=== PATIENT | female | born 1990 ===

== ENCOUNTER 2019-05-22 11:32 | Inpatient (IN) ==
--- OUTSIDE RECORDS SUMMARY | 2019-05-22 11:36 | External Medical Summary | Continuity of Care Document ---
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 Jose Garcia 28 EA Disp Pack Quantity: 1 Refills: 6 Procedures History of Annabel Treatment Of Fracture Of Tibial Shaft With Status: Completed Manipulation History of Pap Smear (+) Low Grade Squamous Intraepithelial Status: Completed Lesion Encounter for contraceptive management Immunizations Immunizations not documented Family History Unknown Family Member Family history of Breast Cancer (V16.3) Status: Active Comments: Family History Social History - Smoking Status Former smoker Plan of Treatment Planned Observations Planned Goals not documented Results No Known Results Results not documented
[2019-05-22] MEDS ORDERED: SODIUM CHLORIDE 0.9% 1000ML 1,000 ML IV ONE ×2 (12:00→13:16)
[2019-05-22] MEDS ORDERED: LORazepam 1 MG/2 ML VIAL IV STA (12:00)
[2019-05-22 12:30] LABS: Basophils # (auto) 0.04 K/uL (0-0.2); Basophils % (auto) 0.8 %; Eosinophils # (auto) 0.01 K/uL (0-0.5); Eosinophils % (auto) 0.2 %; Hematocrit (blood only) 42.1 % (37-47); Hemoglobin 14.9 g/dL (12.0-16.0); Immature Granulocytes # (auto) 0.01 K/uL (0.00-0.02); Immature Granulocytes % (auto) 0.2 %; Lymphocytes # (auto) 1.28 K/uL (1.2-3.4); Lymphocytes % (auto) 25.5 %; Mean Corpuscular Hgb Conc 35.4 g/dL (32-36); Mean Corpuscular Volume 98.8 fL (80-100); Mean Platelet Volume 9.2 fL (7.4-10.4); Monocytes # (auto) 0.33 K/uL (0.11-0.59); Monocytes % (auto) 6.6 %; Neutrophils # (auto) 3.34 K/uL (1.4-6.5); Neutrophils % (auto) 66.7 %; Nucleated RBC # (auto) 0.05 K/uL (0-0); Nucleated RBC % (auto) 0.9 %; Platelet Count 135 K/uL (130-400); RDW Coefficient of Variation 13.8 % (11.5-14.5); RDW Standard Deviation 49.3 fL (36.4-46.3); Red Blood Count 4.26 M/uL (4.2-5.4); White Blood Count 5.01 K/uL (4.8-10.8)
[2019-05-22 12:49] LABS: Potassium 3.6 mmol/L (3.5-5.1)
[2019-05-22 12:50] LABS: Albumin Level 3.8 gm/dl (3.4-5.0); BUN Creatinine Ratio 9.1 (10-20); Bilirubin,Total 0.7 mg/dl (0.2-1); Calcium 8.3 mg/dl (8.5-10.1); Creatinine Clr Calc Pharmacy 111.8 ml/min; Est GFR (African American) 144.9; Globulin 3.7 gm/dl (2.5-4.0); Total Protein 7.5 gm/dl (6.4-8.2)
[2019-05-22 12:54] LABS: Pregnancy Test, Serum Negative (Negative)
[2019-05-22 13:15] LABS: Appearance Urine Clear (Clear); Bilirubin Urine Negative (Negative); Blood Urine Negative (Negative); Color Urine Yellow; Glucose Urine UA Negative (Negative); Ketones Urine Negative (Negative); Leukocyte Esterase Urine Negative (Negative); Nitrite Urine Negative (Negative); Protein Urine Negative (Negative); Specific Gravity Urine 1.007 (1.000-1.030); Urobilinogen Urine Negative (Negative); pH Urine 8.5 (4.5-7.5)
--- NOTE | 2019-05-22 13:15 | Emergency Department Note ---
Entered by Anel Caldwell acting as a scribe for History of Present Illness General Chief complaint: Dehydration Stated complaint: DEHYDRATION,RECENT PANCREATITIS,LOW BLOOD SUGAR Time Seen by Provider: 05/22/19 11:44 Source: patient History of Present Illness Onset (ago): day(s) (several) Location: abdomen Severity: similar to prior episodes Pain Consistency: + other (worsening) Quality: + other (nausea and vomiting ) Exacerbated By: + eating Associated symptoms: + other (negative abdominal pain; negative diarrhea; n egative urinary symptoms); no fever/chills and no shortness of breath The patient is a 29 year old female who presents to the Emergency Room with complaints of worsening nausea and vomiting that began several days prior to arrival. The patient states that she has had similar symptoms over the past month, but states that her symptoms have become worse recently. She states that her symptoms are exacerbated with eating, and states that she vomits every time she eats. The patient reports that she has been able to keep liquids down during this time, but states that today she was unable to keep liquids down. The patient denies shortness of breath, abdominal pain, diarrhea, fever, and urinary symptoms. The patient states that about 4 weeks ago she had abdominal pain, nausea, and vomiting and was diagnosed with pancreatitis. She states that she was previously diagnosed with pancreatitis about 5 years ago which was due to alcohol use, but states that she was told that her most recent episode of pancreatitis was not due to alcohol use. The patient states that she does still drink, but states that she has not been drinking as much as she previously did. She states that she had two alcoholic drinks yesterday, but denies vomiting yesterday. The patient states that there is no chance she may be . The patient states that she has a history of anxiety and depression, but denies any current thoughts of hurting herself or overdoses on medications. The patient denies any symptoms of withdrawal when not drinking, but states that she often shakes from her anxiety so she is unable to determine whether the lack of alcoho l is causing her shaking. The patient denies any recent trauma to her abdomen. Home Medications Home Medications Medication Instructions Recorded Confirmed Type levonorgestrel [Mirena] 1 device INTRAUTERINE DIRECTED 05/22/19 05/22/19 History lorazepam [Ativan] 0.5 mg PO DIRECTED PRN 05/22/19 05/22/19 History losartan 50 mg PO DAILY 05/22/19 05/22/19 History Allergies Allergy/AdvReac Type Severity Reaction Status Date / Time Penicillins AdvReac Rash Unverified 05/22/19 12:32 Past Med/Surg History Medical History Pancreatitis Social History Feels Safe at Home: Yes Smoking Status: Never smoker Hx Alcohol Use: Yes Review of Systems See HPI for pertinent positives & negatives. and A total of 10 systems reviewed and were otherwise negative Physical Exam Vital Signs Vital Signs - 24 hr 05/22/19 11:40 05/22/19 12:24 05/22/19 12:26 Temperature 37.1 C Temperature Source Oral Sepsis Recent Fever Within 48 Hours No Sepsis New/Unexplained Change in Mental Status No Sepsis Action Taken by Nursing No Action Required Pulse Rate 100 H 97 H 91 H Pulse Rate from SpO2 Sensor Respiratory Rate 16 17 17 Respiratory Effort / Characteristics Non-Labored Respiratory Depth Normal Blood Pressure 167/107 H 146/106 H Blood Pressure Mean 127 119 Pulse Oximetry 96 98 96 Oxygen Delivery Method Room Air Room Air 05/22/19 12:30 05/22/19 13:05 05/22/19 13:30 Temperature Temperature Source Sepsis Recent Fever Within 48 Hours Sepsis New/Unexplained Change in Mental Status Sepsis Action Taken by Nursing Pulse Rate 96 H 96 H 92 H Pulse Rate from SpO2 Sensor 97 H 96 H Respiratory Rate 21 18 15 Respiratory Effort / Characteristics Respiratory Depth Blood Pressure 139/103 H 147/111 H 141/98 H Blood Pressure Mean 115 123 112 Pulse Oximetry 97 99 98 Oxygen Delivery Method Room Air Room Air Room Air 05/22/19 14:00 05/22/19 14:28 05/22/19 14:30 Temperature Temperature Source Sepsis Recent Fever Within 48 Hours Sepsis New/Unexplained Change in Mental Status Sepsis Action Taken by Nursing Pulse Rate 100 H 98 H Pulse Rate from SpO2 Sensor 100 H Respiratory Rate 24 18 Respiratory Effort / Characteristics Respiratory Depth Blood Pressure 135/99 135/99 142/101 H Blood Pressure Mean 111 114 Pulse Oximetry 98 97 Oxygen Delivery Method Room Air Room Air 05/22/19 15:19 05/22/19 15:30 Temperature Temperature Source Sepsis Recent Fever Within 48 Hours Sepsis New/Unexplained Change in Mental Status Sepsis Action Taken by Nursing Pulse Rate 99 H 103 H Pulse Rate from SpO2 Sensor 103 H Respiratory Rate 17 13 Respiratory Effort / Characteristics Respiratory Depth Blood Pressure 137/95 Blood Pressure Mean 109 Pulse Oximetry 97 100 Oxygen Delivery Method Room Air Room Air General: Mildly-ill appearing young female in no acute distress. Mildly shaky and anxious. HEENT: Normal cephalic atraumatic. Pupils are equal round and reactive to light. Extraocular movements are intact. Oropharynx is pink with moist mucous membranes. No swelling of the mouth lips or tongue. Neck: Supple with a midline trachea. No meningeal signs or stiffness, no JVD or bruits. No Stridor. Chest: Clear to auscultation bilaterally. No wheezes or rhonchi. No increased work of breathing. Heart: regular rate and rhythm. Abdomen: Soft nontender, nondistended without rebound guarding or rigidity. Extremities: No cyanosis clubbing or edema. No calf tenderness or asymmetry Spine/Back. Non tender to palpation. No CVA tenderness Skin: Good turgor without rashes. Neurologic exam: Cranial nerves two through 12 are intact. Motor and sensation are intact and symmetrical throughout. Course 1147: Past medical records reviewed. The patient was evaluated in room B9. A complete history and physical exam was performed. 1306: The patient is currently giving a urine sample. 1333: I ordered Toradol for the patient's headache. The psychiatric counter caser will talk to the patient. 1404: The patient admitted to the psychiatric counter caser that she has about 6 drinks a day since October and is worried about withdrawal. I will prescribe her an Ativan taper. 1415: Upon reevaluation, the patient is resting comfortably. I discussed findings and results with her. She verbalized agreement of the treatment plan. She was discharged home. Administered Medications Discontinued Medications Sodium Chloride (Nss 1000ml) 1,000 mls @ 999 mls/hr IV .Q1H1M ONE Stop: 05/22/19 13:00 Last Infusion: 05/22/19 13:21 Dose: 0 mls/hr Documented by: [id number] Admin: 05/22/19 12:20 Dose: 999 mls/hr Documented by: [id number] Lorazepam (Ativan) 1 mg in 2 mls @ 2 mls/min IV NOW STA Stop: 05/22/19 12:01 Last Admin: 05/22/19 12:20 Dose: 2 mls/min Documented by: [id number] Sodium Chloride (Nss 1000ml) 1,000 mls @ 999 mls/hr IV .Q1H1M ONE Stop: 05/22/19 14:16 Last Infusion: 05/22/19 14:35 Dose: 0 mls/hr Documented by: [id number] Admin: 05/22/19 13:34 Dose: 999 mls/hr Documented by: [id number] Ketorolac Tromethamine (Toradol) 15 mg IV NOW ONE Stop: 05/22/19 13:34 Last Admin: 05/22/19 13:39 Dose: 15 mg Documented by: [id number] Lorazepam (Ativan) 1 mg PO NOW STA Stop: 05/22/19 14:16 Last Admin: 05/22/19 14:28 Dose: 1 mg Documented by: [id number] Ondansetron HCl (Zofran) 4 mg IV NOW STA Stop: 05/22/19 15:02 Last Admin: 05/22/19 15:06 Dose: 4 mg Documented by: [id number] Ranitidine HCl (Zantac) 150 mg PO NOW ONE Stop: 05/22/19 15:23 Last Admin: 05/22/19 15:32 Dose: 150 mg Documented by: [id number] Medical Decision Making Differential Diagnosis Differential diagnoses include pancreatitis, gastritis, dehydration, electrolyte or metabolic abnormality, alcohol abuse/withdrawal, and others were considered. Medical Records Attestation: I reviewed the patient's medical records. Home Medications Current Medication List: was personally reviewed by me Laboratory Data Attestation: I reviewed the patient's lab results. Result diagrams: 05/22/19 12:10 05/22/19 12:10 Lab Results 05/22/19 05/22/19 05/22/19 Range/Units 12:10 12:10 12:10 WBC 5.01 (4.8-10.8) K/uL RBC 4.26 (4.2-5.4) M/uL Hgb 14.9 (12.0-16.0) g/dL Hct 42.1 (37-47) % MCV 98.8 (80-100) fL MCH 35.0 H (25-34) pg MCHC 35.4 (32-36) g/dL RDW Std Deviation 49.3 H (36.4-46.3) fL RDW Coeff of [place] 13.8 (11.5-14.5) % Plt Count 135 (130-400) K/uL MPV 9.2 (7.4-10.4) fL Immature Gran % (Auto) 0.2 % Neut % (Auto) 66.7 % Lymph % (Auto) 25.5 % [place] % (Auto) 6.6 % Eos % (Auto) 0.2 % Baso % (Auto) 0.8 % Immature Gran # (Auto) 0.01 (0.00-0.02) K/uL Neut # (Auto) 3.34 (1.4-6.5) K/uL Lymph # (Auto) 1.28 (1.2-3.4) K/uL [place] # (Auto) 0.33 (0.11-0.59) K/uL Eos # (Auto) 0.01 (0-0.5) K/uL Baso # (Auto) 0.04 (0-0.2) K/uL Absolute Nucleated RBC 0.05 H (0-0) K/uL Nucleated RBC % (auto) 0.9 % Sodium 137 (136-145) mmol/L Potassium 3.6 (3.5-5.1) mmol/L Chloride 98 (98-107) mmol/L Carbon Dioxide 27 (21-32) mmol/L Anion Gap 12.0 H (3-11) BUN 5 L (7-18) mg/dl Creatinine 0.55 L (0.6-1.2) mg/dl Est Cr Clr Drug Dosing 111.8 ml/min Est GFR ( Amer) 144.9 Est GFR (Non-Af Amer) 125.0 BUN/Creatinine Ratio 9.1 L (10-20) Glucose 145 H (70-99) mg/dl Calcium 8.3 L (8.5-10.1) mg/dl Magnesium 2.0 (1.8-2.4) mg/dl Total Bilirubin 0.7 (0.2-1) mg/dl AST 338 H (15-37) U/L ALT 219 H (12-78) U/L Alkaline Phosphatase 104 (45-117) U/L Total Creatine Kinase (26-192) U/L CK-MB (CK-2) (0.5-3.6) ng/ml CK/CKMB % Calc Total Protein 7.5 (6.4-8.2) gm/dl Albumin 3.8 (3.4-5.0) gm/dl Globulin 3.7 (2.5-4.0) gm/dl Albumin/Globulin Ratio 1.0 (0.9-2) Amylase (25-115) U/L Lipase 110 (73-393) U/L HCG, Qual (Negative) Urine Color Urine Appearance (Clear) Urine pH (4.5-7.5) Ur Specific [place] (1.000-1.030) Urine Protein (Negative) Urine Glucose (UA) (Negative) Urine Ketones (Negative) Urine Blood (Negative) Urine Nitrite (Negative) Urine Bilirubin (Negative) Urine Urobilinogen (Negative) Ur Leukocyte Esterase (Negative) Ethyl Alcohol mg/dL 31.0 H (0-3) mg/dl 05/22/19 05/22/19 05/22/19 Range/Units 12:10 12:10 12:10 WBC (4.8-10.8) K/uL RBC (4.2-5.4) M/uL Hgb (12.0-16.0) g/dL Hct (37-47) % MCV (80-100) fL MCH (25-34) pg MCHC (32-36) g/dL RDW Std Deviation (36.4-46.3) fL RDW Coeff of [place] (11.5-14.5) % Plt Count (130-400) K/uL MPV (7.4-10.4) fL Immature Gran % (Auto) % Neut % (Auto) % Lymph % (Auto) % [place] % (Auto) % Eos % (Auto) % Baso % (Auto) % Immature Gran # (Auto) (0.00-0.02) K/uL Neut # (Auto) (1.4-6.5) K/uL Lymph # (Auto) (1.2-3.4) K/uL [place] # (Auto) (0.11-0.59) K/uL Eos # (Auto) (0-0.5) K/uL Baso # (Auto) (0-0.2) K/uL Absolute Nucleated RBC (0-0) K/uL Nucleated RBC % (auto) % Sodium (136-145) mmol/L Potassium (3.5-5.1) mmol/L Chloride (98-107) mmol/L Carbon Dioxide (21-32) mmol/L Anion Gap (3-11) BUN (7-18) mg/dl Creatinine (0.6-1.2) mg/dl Est Cr Clr Drug Dosing ml/min Est GFR ( Amer) Est GFR (Non-Af Amer) BUN/Creatinine Ratio (10-20) Glucose (70-99) mg/dl Calcium (8.5-10.1) mg/dl Magnesium Cancelled (1.8-2.4) mg/dl Total Bilirubin (0.2-1) mg/dl AST (15-37) U/L ALT (12-78) U/L Alkaline Phosphatase (45-117) U/L Total Creatine Kinase (26-192) U/L CK-MB (CK-2) (0.5-3.6) ng/ml CK/CKMB % Calc Total Protein (6.4-8.2) gm/dl Albumin (3.4-5.0) gm/dl Globulin (2.5-4.0) gm/dl Albumin/Globulin Ratio (0.9-2) Amylase 38 (25-115) U/L Lipase (73-393) U/L HCG, Qual Negative (Negative) Urine Color Urine Appearance (Clear) Urine pH (4.5-7.5) Ur Specific [place] (1.000-1.030) Urine Protein (Negative) Urine Glucose (UA) (Negative) Urine Ketones (Negative) Urine Blood (Negative) Urine Nitrite (Negative) Urine Bilirubin (Negative) Urine Urobilinogen (Negative) Ur Leukocyte Esterase (Negative) Ethyl Alcohol mg/dL (0-3) mg/dl 05/22/19 05/22/19 Range/Units 12:10 13:04 WBC (4.8-10.8) K/uL RBC (4.2-5.4) M/uL Hgb (12.0-16.0) g/dL Hct (37-47) % MCV (80-100) fL MCH (25-34) pg MCHC (32-36) g/dL RDW Std Deviation (36.4-46.3) fL RDW Coeff of [place] (11.5-14.5) % Plt Count (130-400) K/uL MPV (7.4-10.4) fL Immature Gran % (Auto) % Neut % (Auto) % Lymph % (Auto) % [place] % (Auto) % Eos % (Auto) % Baso % (Auto) % Immature Gran # (Auto) (0.00-0.02) K/uL Neut # (Auto) (1.4-6.5) K/uL Lymph # (Auto) (1.2-3.4) K/uL [place] # (Auto) (0.11-0.59) K/uL Eos # (Auto) (0-0.5) K/uL Baso # (Auto) (0-0.2) K/uL Absolute Nucleated RBC (0-0) K/uL Nucleated RBC % (auto) % Sodium (136-145) mmol/L Potassium (3.5-5.1) mmol/L Chloride (98-107) mmol/L Carbon Dioxide (21-32) mmol/L Anion Gap (3-11) BUN (7-18) mg/dl Creatinine (0.6-1.2) mg/dl Est Cr Clr Drug Dosing ml/min Est GFR ( Amer) Est GFR (Non-Af Amer) BUN/Creatinine Ratio (10-20) Glucose (70-99) mg/dl Calcium (8.5-10.1) mg/dl Magnesium (1.8-2.4) mg/dl Total Bilirubin (0.2-1) mg/dl AST (15-37) U/L ALT (12-78) U/L Alkaline Phosphatase (45-117) U/L Total Creatine Kinase 103 (26-192) U/L CK-MB (CK-2) < 1.0 (0.5-3.6) ng/ml CK/CKMB % Calc TNP Total Protein (6.4-8.2) gm/dl Albumin (3.4-5.0) gm/dl Globulin (2.5-4.0) gm/dl Albumin/Globulin Ratio (0.9-2) Amylase (25-115) U/L Lipase (73-393) U/L HCG, Qual (Negative) Urine Color Yellow Urine Appearance Clear (Clear) Urine pH 8.5 H (4.5-7.5) Ur Specific [place] 1.007 (1.000-1.030) Urine Protein Negative (Negative) Urine Glucose (UA) Negative (Negative) Urine Ketones Negative (Negative) Urine Blood Negative (Negative) Urine Nitrite Negative (Negative) Urine Bilirubin Negative (Negative) Urine Urobilinogen Negative (Negative) Ur Leukocyte Esterase Negative (Negative) Ethyl Alcohol mg/dL (0-3) mg/dl ECG Data Attestation: I personally reviewed and interpreted this ECG as follows: Indication: nausea Rate (beats per minute): 88 Rhythm: normal sinus Findings: no PAC, no PVC, no acute ischemic change and no ectopy Blood Pressure Blood Pressure Findings: Elevated blood pressure Blood Pressure Disposition: elevated BP felt to be situational MDM Narrative This patient comes in as described above. She is complained of feeling nauseated and having trouble eating. She was hospitalized for pancreatitis about 4 weeks ago. She does drink alcohol. She was out in the sun a lot yesterday. No trauma. No abdominal pain. IV access established and blood work was obtained she was hydrated 1 L IV normal saline bolus she did receive a second normal saline bolus while she was in the ER. She has no white count or fever to suggest infection her abdomen is benign. She was given Ativan in itially 1 mg IV which would help with anxiety nausea and any potential withdrawal from alcohol. Her alcohol level was 30. Her lipase and amylase are not elevated. She has mildly elevated LFTs which I suspect are from drinking heavily. She has no evidence of rhabdomyolysis. She seemed to do well with the Ativan but then started feeling like she needed more she was given p.o. Ativan 1 mg. When she tried to eat a banana she felt sick and threw up and is very concerned about going home I gave her Zofran 4 mg IV and she is had additional IV normal saline bolus. Also Zantac 150 mg p.o. I had our psychiatric counter caser talk to her about rehab she does not want to go inpatient at this point and she is from out of town rather get services here. She drinks 6 drinks a day and I think a lot of her symptoms are either related alcohol related gastritis or withdrawal. She probably has anxiety on top of this. She does not feel she can go home at this point. I have consult the [facility] hospitalist to see her for possible admission with hydration, antiemetics, and benzodiazepines and GI work-up. Impression & Plan Emesis, Nausea, Alcohol abuse, Anxiety, Dehydration Discharge Plan Visit Data Chief Complaint: Dehydration Stated Complaint: DEHYDRATION,RECENT PANCREATITIS,LOW BLOOD SUGAR ED Provider: Chriss Loya Discharge Problem: Emesis, Nausea, Alcohol abuse, Anxiety, Dehydration Patient Disposition: Home - Self-Care Discharge Instructions Activity Restrictions/Additional Instructions: Rest. Follow-up with your doctor and counselor for further evaluation for your anxiety and alcohol use and abdominal pain Minimize your alcohol use. May use Maalox. Also may use [id number] Zantac or Pepcid Return if: Worsening symptoms, not tolerating fluids, fever or chills, any new problems For alcohol withdrawal prevention use Ativan (Lorazepam) taper as directed 1 mg lorazepam every 6 hours x1 day then 1 mg lorazepam every 8 hours x1 day then 1 mg lorazepam every 12 hours x1 day then 1 mg lorazepam once a day for 1 day Ativan/lorazepam may make you drowsy and do not take before drinking, driving, working. This replaces the Ativan/Lorazepam that you normally take and do not take both If you start drinking do not take the Ativan/lorazepam, stop taking it Follow-up with your doctor tomorrow for recheck Interventions: ED Discharge Assessment Last Done: 05/22/19 14:28 Forms Stand Alone Forms: My [facility], Important Visit Information Prescriptions Prescriptions: No Action losartan 50 mg Tablet 50 mg PO DAILY RF: 0 Mirena 20 mcg/24 hours (5 yrs) 52 mg Intrauterine Device 1 device INTRAUTERINE DIRECTED RF: 0 lorazepam [Ativan] 0.5 mg Tablet 0.5 mg PO DIRECTED PRN (Reason: Anxiety) RF: 0 Referrals Referrals: ERICA BOSS [Other] The scribe's documentation has been prepared under my direction and personally reviewed by me in its entirety. I confirm that the note above accurately reflects all work, treatment, procedures, and medical decision making performed by me.
[2019-05-22] MEDS ORDERED: KETOROLAC TROMETHAMINE 15 MG/ML VIAL IV ONE (13:33)
[2019-05-22 13:52] LABS: Creatine Kinase 103 U/L (26-192); Creatine Kinase MB < 1.0 ng/ml (0.5-3.6)
[2019-05-22] MEDS ORDERED: LORazepam 1 MG TAB PO STA (14:15)
[2019-05-22] MEDS ORDERED: ONDANSETRON INJ 2 MG/ML 2 ML VIAL IV STA (15:01)
[2019-05-22] MEDS ORDERED: RANITIDINE HCL SYRUP 150 MG/10 ML UDC PO ONE (15:22)
--- NOTE | 2019-05-22 15:56 | History & Physical Report ---
Date of Service May 22, 2019 Assessment & Plan (1) Nausea and vomiting: Patient clearly needs to stop drinking. Recent episode of acute pancreatitis is adding to the situation as she is likely still healing from this, and still drinking as of yesterday. She has a history of bulimia and has some psychosocial issues including anxiety and depression. There may be some issue with the process of swallowing food as food intolerance appears to be more closely linked to that as opposed to persistent nausea. She also appears to have alcohol withdrawal as she is mildly tachycardic, anxious and hypertensive. She denies any danger signs such as odynophagia severe weight loss, globus sensa tion, hematemesis. I do not think an endoscopy is needed however, the patient would feel more comfortable being seen by a blind cleaner to discuss these issues. Additionally I feel speech pathology will help us breakdown the swallowing process to localize the problem. Continue with antiemetics, IV fluids and other supportive care measures. Clear liquid diet as tolerated. (2) Alcohol abuse: Heavy alcohol abuse, encouraged to quit. (3) Alcohol withdrawal: Slightly tachycardic with things diet he present and hypertension. This is consistent with possible alcohol withdrawal. Ativan 1 mg IV was given in the ER, however, she is still anxious. Will give Ativan 2 mg IV now and put her on a withdrawal protocol. However, typically this underestimates the needs of someone withdrawing so will add additional Ativan as needed for anxiety or agitation. (4) Transaminitis: Likely secondary to alcohol intake, however, will also get right upper quadrant ultrasound in a.m. Trend liver panel in a.m. (5) Hypertension: Continue losartan daily per home regimen. Situational hypertension in setting of possible alcohol withdrawal. Continue treating this with Ativan and supportive care measures. (6) DVT prophylaxis: SCDs Full code Disposition-home once tolerating p.o. Kamila Deluna DO [facility] Hospitalist History of Present Illness Chief Complaint: Nausea and vomiting x2 days Primary Care Provider: ERICA BOSS 29-year-old female who is a heavy alcohol abuser with a recent episode of acute pancreatitis 1 month ago for which she was hospitalized presents with nausea and intractable vomiting for the past 2 days. She appears to have an issue with swallowing food and initiating the swallow. She reports poor appetite for at least 2 months. She reports weight loss of 8 pounds in the last month but was also hospitalized for acute pancreatitis. She reports when she was discharged from prior hospitalization she was eating well but only for a brief time. She denies any changes in her stools. She denies any hematochezia or hematemesis. She denies any odynophagia. She denies any globus sensation. She reports that when the food hits her stomach, she can get too excited and vomited up. She reports some heartburn from the recent ranitidine drink she had in the ER. She otherwise denies any fevers, chills, chest pain, shortness of breath, abdominal pain, back pain. She denies using any other street drugs including no marijuana. She is actually considered starting medical marijuana because of her persistent nausea. She has had issues with drinking and quit up until last holiday season, and has been drinking consistently for the last 6 months. Her last drink was yesterday and her alcohol level is 30 today. On exam she is anxious and tachycardic in the low 100s. She reports feeling anxious. She does have a history of anxiety and depression and is used sertraline in the past with negative effects. She is currently taking clonazepam 0.5mg p.o. every morning. She is seeing a psychologist. She is not and has an IUD in place it was not menstruating at this time. Review of systems is otherwise negative. Allergies Allergy/AdvReac Type Severity Reaction Status Date / Time Penicillins AdvReac Rash Unverified 05/22/19 12:32 Home Medications Home Medications Medication Instructions Recorded Confirmed Type levonorgestrel [Mirena] 1 device INTRAUTERINE DIRECTED 05/22/19 05/22/19 History lorazepam [Ativan] 0.5 mg PO DIRECTED PRN 05/22/19 05/22/19 History losartan 50 mg PO DAILY 05/22/19 05/22/19 History Past Med/Surg History Medical History Alcohol abuse Anxiety Hypertension Pancreatitis Surgical History No pertinent past surgical history Family History Mother Ulcerative colitis Father Colorectal cancer, Onset Age: 60 Social History Preferred Language: Uzbek Communication Ability: Effective Assistant Food Service Director Required: No Beliefs That Will Affect Care: None Current Living Situation: Spouse Other Information That Helps Us Care for You: No Feels Safe at Home: Yes Safety Concerns: Feels Safe At This Time Smoking Status: Never smoker Tobacco Type: cigarettes ; Do You Dip or Chew Tobacco: No ; Smoking End Date: 2009 ; Second Hand Exposure: No ; Tobacco Cessation Education Requested by Patient: No Hx Alcohol Use: Yes (6 beers daily, also drinks wine and hard liquor.) Alcohol type: beer, wine and hard liquor Hx Substance Use: No Review of Systems Review of Systems: All systems reviewed & are unremarkable except as noted in HPI & below Physical Exam Physical Exam: CONSTITUTIONAL: WNWD, vitals as above, generally well- appearing but anxious EYES: EOMI bilaterally, PERRL, normal conjunctivae, no scleral icterus ENT: MMM RESPIRATORY: clear to auscultation bilaterally, no crackles, rales or wheezes, normal respiratory effort CARDIOVASCULAR: tachy rate and regular rhythm, S1 and 2 heard without murmurs, gallops or rubs, no JVD, no peripheral edema GASTROINTESTINAL: normal bowel sounds, soft, nontender, nondistended MUSCULOSKELETAL: strength 5/5 throughout, head is normocephalic and atraumatic SKIN: warm and dry NEUROLOGIC: CN 2-12 grossly intact, no sensory deficit, normal cognition, normal speech, no tremor, no gross focal deficits. PSYCHIATRIC: alert cooperative and oriented to person, place and time. Results & Data Vital Signs (Past 12 Hours) Vital Signs Temp Pulse Resp BP Pulse Ox 05/22/19 15:30 103 H 13 137/95 100 05/22/19 15:19 99 H 17 97 05/22/19 14:30 142/101 H 05/22/19 14:28 98 H 18 135/99 97 05/22/19 14:00 100 H 24 135/99 98 05/22/19 13:30 92 H 15 141/98 H 98 05/22/19 13:05 96 H 18 147/111 H 99 05/22/19 12:30 96 H 21 139/103 H 97 05/22/19 12:26 91 H 17 96 05/22/19 12:24 97 H 17 146/106 H 98 05/22/19 11:40 37.1 C 100 H 16 167/107 H 96 Laboratory Results Short CBC 05/22/19 Range/Units 12:10 WBC 5.01 (4.8-10.8) K/uL Hgb 14.9 (12.0-16.0) g/dL Hct 42.1 (37-47) % Plt Count 135 (130-400) K/uL BMP 05/22/19 12:10 Sodium 137 Potassium 3.6 Chloride 98 Carbon Dioxide 27 BUN 5 L Creatinine 0.55 L Glucose 145 H Calcium 8.3 L Cardiac Enzymes 05/22/19 Range/Units 12:10 Total Creatine Kinase 103 (26-192) U/L CK-MB (CK-2) < 1.0 (0.5-3.6) ng/ml Liver Function 05/22/19 Range/Units 12:10 Total Bilirubin 0.7 (0.2-1) mg/dl AST 338 H (15-37) U/L ALT 219 H (12-78) U/L Alkaline Phosphatase 104 (45-117) U/L Albumin 3.8 (3.4-5.0) gm/dl Urine 05/22/19 Range/Units 13:04 Urine Color Yellow Urine Appearance Clear (Clear) Urine pH 8.5 H (4.5-7.5) Ur Specific [place] 1.007 (1.000-1.030) Urine Protein Negative (Negative) Urine Glucose (UA) Negative (Negative) Code Status & VTE Plan Code Status Full VTE Prophylaxis Plan VTE Prophylaxis will be ordered: Yes Critical Care Time Critical Care Time: No
[2019-05-22] MEDS ORDERED: LORazepam 2 MG/4 ML VIAL IV STA (16:42)
[2019-05-22 16:50] LABS: Amphetamines+Metham, Urine Neg (Neg); Barbiturates, Urine Neg (Neg); Benzodiazepine, Urine Neg (Neg); Cocaine, Urine Neg (Neg); MDMA (Ecstacy), Urine Neg (Neg); Methadone, Urine Neg (Neg); Opiate, Urine Neg (Neg); Phencyclidine, Urine Neg (Neg)
[2019-05-22] MEDS ORDERED: NON-FORMULARY MEDICATION (Levonorgestrel [Mirena] 1 EA) IU SCH (17:15)
[2019-05-22] MEDS ORDERED: LORazepam 1 MG/2 ML VIAL IV PRN (17:15)
--- NOTE | 2019-05-22 17:43 | XRay Report ---
CHEST AND ABDOMEN 2 VIEWS HISTORY: intractable nausea/vomiting COMPARISON: None. FINDINGS: The lungs are clear. The cardiomediastinal silhouette is within normal limits. There is no pneumoperitoneum or pneumatosis. The bowel gas pattern is unremarkable. No evidence for b owel obstruction. No pathologic calcifications. An intrauterine device is seen within the mid pelvis. IMPRESSION: No acute cardiopulmonary process. No evidence for bowel obstruction. Electronically signed by: Kris Robles M.D. 05/22/2019 5:42 PM
[2019-05-22] MEDS ORDERED: MULTI-VITAMIN INFUSION 10 ML, THIAMINE HCL 100 MG, FOLIC ACID 1 MG in SODIUM CHLORIDE 0... IV SCH (18:00)
[2019-05-22] MEDS: THIAMINE HCL 100 MG in SYRINGE 9 ML IV SCH (18:07)
[2019-05-22] MEDS: ACETAMINOPHEN 325 MG TAB PO PRN (22:23)
[2019-05-22] MEDS: ONDANSETRON INJ 2 MG/ML 2 ML VIAL IV PRN (22:32)
[2019-05-22] MEDS: SODIUM CHLORIDE 0.9% 1000ML 1,000 ML IV SCH (23:42)
[2019-05-23] MEDS: LORazepam 0.5 MG/1 ML VIAL IV PRN ×3 (00:35→17:37)
[2019-05-23 06:16] LABS: Hematocrit (blood only) 39.6 % (37-47); Hemoglobin 13.7 g/dL (12.0-16.0); Mean Corpuscular Hgb Conc 34.6 g/dL (32-36); Mean Platelet Volume 9.7 fL (7.4-10.4); Platelet Count 109 K/uL (130-400); RDW Coefficient of Variation 13.9 % (11.5-14.5); RDW Standard Deviation 50.8 fL (36.4-46.3); Red Blood Count 3.92 M/uL (4.2-5.4); White Blood Count 6.81 K/uL (4.8-10.8)
[2019-05-23] MEDS: ONDANSETRON INJ 2 MG/ML 2 ML VIAL IV PRN ×2 (06:18→17:37)
[2019-05-23 06:52] LABS: Albumin Level 3.2 gm/dl (3.4-5.0); BUN Creatinine Ratio 3.9 (10-20); Bilirubin Direct 0.3 mg/dl (0-0.2); Calcium 7.7 mg/dl (8.5-10.1); Creatinine Clr Calc Pharmacy 107.9 ml/min; Est GFR (African American) 143.2; Est GFR (Non-African American) 123.5; Magnesium 1.6 mg/dl (1.8-2.4); Potassium 3.1 mmol/L (3.5-5.1)
[2019-05-23 06:58] LABS: Bilirubin,Total 1.2 mg/dl (0.2-1); Total Protein 6.4 gm/dl (6.4-8.2)
--- NOTE | 2019-05-23 07:14 | Ultrasound Report ---
ULTRASOUND RIGHT UPPER QUADRANT ABDOMEN CLINICAL HISTORY: Elevated hepatic transaminases. Nausea and vomiting. COMPARISON STUDY: Abdominal radiographs dated 05/22/2019. TECHNIQUE: Real-time, grayscale, and color flow sonography of the right upper quadrant of the abdomen was performed. Images are reviewed in the transverse and longitudinal planes. FINDINGS: Liver: The liver is enlarged, measuring over 18 cm in length. The liver demonstrates heterogeneously increased echotexture consistent with hepatic steatosis. Note that this degrades acoustic penetration of the liver. There is no intrahepatic biliary ductal dilatation. The main portal vein is patent. Gallbladder: The gallbladder is normal in appearance. No gallstones are identified. There is no gallb ladder wall thickening or pericholecystic fluid. A sonographic Crow's sign is reportedly absent. Th e common bile duct measures up to 0.5 cm in diameter. Pancreas: Visualized portions of the pancreatic head and body are normal in appearance. The splenic v ein is patent. Right kidney: Survey images of the right kidney demonstrate normal size and echotexture. There is no hydronephrosis. Ascites: None. IMPRESSION: 1. No acute sonographic abnormality is identified in the right upper quadrant. No gallstones are seen . 2. Hepatomegaly and hepatic steatosis. Electronically signed by: Chaitanya Orozco M.D. 05/23/2019 7:13 AM
[2019-05-23] MEDS: LOSARTAN POTASSIUM 50 MG TAB PO SCH (09:04)
[2019-05-23] MEDS: POTASSIUM CHLORIDE 20 MEQ TABCR PO STA ×2 (09:05→09:31)
[2019-05-23] MEDS: MAGNESIUM SULFATE / D5W 1 GM/100 ML BAG IV SCH ×2 (09:06→10:39)
[2019-05-23] MEDS: POTASSIUM CHLORIDE / WTR 10 MEQ/100 ML PLCT IV SCH ×4 (11:36→16:03)
[2019-05-23] MEDS: SODIUM CHLORIDE 0.9% 1000ML 1,000 ML IV SCH (11:36)
--- NOTE | 2019-05-23 11:55 | Gastrointestinal Consultation ---
Date of Consultation May 23, 2019 Assessment & Plan (1) Alcohol abuse: (2) Transaminitis: (3) Nausea and vomiting: Pt is a 29 y/o female seen for n/v. Hx of ETOH abuse and pancreatitis a month ago. Labs this time showed elevated LFTs, normal Lipase. RUQ u/s w signs fo hepatic steatosis but no gallstones. - Pepcid 20mg IV BID - Advance diet as tolerated - Discussed w her about obtaining EGD/EUS to r/o esophagitis, gastritis, other etiologies of pancreatitis such as biliary stones not seen by u/s, pancreatitic cysts etc. Also also possibly obtaining swallow study to r/o esophageal spasms, motility. She resides in [place]. May be more reasonable for her to obtain these tests in outpt setting at her hometown. She will consider. - Trend LFTs while admitted, if trending up, would obtain MRCP vs serologies to r/o AIH, hepatitis, and other causes of liver disease. - Strict ETOH cessation advised. Attg add: I interviewed and examined pt, reviewed chart and labs. Pt with h/o alcoholism, pancreatitis, now with resolving n/v, transaminitis. At present, she feels well, without pain, taye liquids without diff, denies nausea. Suspect alcoholic gastritis. Offered pt EGD + EUS, but pt prefers to f/u with local GI. Please consult field nurse case manager here to provide local resources for alcohol rehab. Will sign off, call with questions. History of Present Illness Reason for Consultation: Nausea, vomiting Requesting Physician: Dr. Jefry Dejesus Attending Physician: Dr. Zuleika Louis History of Present Illness Pt is a 29 y/o female w PMHx of ETOH abuse (5-6 mixed drinks a day), pancreatitis admitted at [place] 1 month ago currently admitted for n/v. She was passing through town for a race, but had been having poor appetite, increased n/v and was taken to hospital. She denies any trouble swallowing or choking on foods. Said just felt not much appetite for weeks and anytime she brushes teeth or swallow even bland foods such as bananas, jello, she would "gag". At home staying on mostly smoothies. She denies abd pain, or changes in bowel habits. Though mentioned that her stools are bit looser these days. Denies any blood in stools. Upon evaluation, labs showed no signs of leukocytosis, H/H normal. She has some electrolytes derrangement - low K, Ca, Mg. ETOH level 31, rest of urine toxicology negative. LFTs elevated: Tbili 1.6, AST 245, ALT 160, AP 81. RUQ u/s unremarkable except some hepatic steatosis. No gallstones noted. CXR u nremarkable. Hcg negative. Lipase 110. Allergies Allergy/AdvReac Type Severity Reaction Status Date / Time Penicillins AdvReac Rash Unverified 05/22/19 12:32 Home Medications Home Medications Medication Instructions Recorded Confirmed Type levonorgestrel [Mirena] 1 device INTRAUTERINE DIRECTED 05/22/19 05/22/19 History lorazepam [Ativan] 0.5 mg PO DIRECTED PRN 05/22/19 05/22/19 History losartan 50 mg PO DAILY 05/22/19 05/22/19 History Patient History Medical History Alcohol abuse Anxiety Hypertension Pancreatitis Surgical History No pertinent past surgical history Family History Mother Ulcerative colitis Father Colorectal cancer, Onset Age: 60 Social History Preferred Language: Niuean Communication Ability: Effective Secretary Of State Required: No Beliefs That Will Affect Care: None Current Living Situation: Spouse Other Information That Helps Us Care for You: No Feels Safe at Home: Yes Safety Concerns: Feels Safe At This Time Smoking Status: Never smoker Tobacco Type: cigarettes ; Do You Dip or Chew Tobacco: No ; Smoking End Date: 2009 ; Second Hand Exposure: No ; Tobacco Cessation Education Requested by Patient: No Hx Alcohol Use: Yes (6 beers daily, also drinks wine and hard liquor.) Alcohol type: beer, wine and hard liquor Hx Substance Use: No Review of Systems Review of Systems: All systems reviewed & are unremarkable except as noted in HPI & below Physical Exam Constitutional: WD/WN, vitals as above well groomed, cooperative and comfo rtable Eyes: PERRL, conjunctivae normal, anicteric sclerae ENMT: external ear and nose normal, oropharynx normal Respiratory: normal respiratory effort, lungs clear to auscultation Cardiovascular: RRR, no murmur, no edema Gastrointestinal (Abdomen): normal bowel sounds, soft, nontender, no hepatosplenomegaly Skin: no rashes, warm and dry no jaundice Neurologic: Motor/Sensory: no asterixis Psychiatric: A+Ox3, euthymic affect Lymphatic: no lymphedema Results & Data Vital Signs (Past 12 Hours) Vital Signs Temp Pulse Resp BP Pulse Ox 05/23/19 07:07 36.9 C 66 16 139/93 93
--- NOTE | 2019-05-23 14:18 | Hospitalist Progress Note ---
Date of Service May 23, 2019 Assessment & Plan (1) Nausea and vomiting: Possible related to alcohol abuse KUB showed No acute cardiopulmonary process. No evidence for bowel obstruction. continue IVF Tolerated clear liquid diet GI on board Recommended to advance diet as tolerated Will need outpatient work up (2) Alcohol abuse: Alcohol level 30 Counseling on alcohol cessation Will monitor for alcohol withdrawal On ativan prn for alcohol withdrawal symptoms Will monitor for sign of DT Continue thiamine (3) Alcohol withdrawal: Slightly tachycardic with things diet he present and hypertension. This is consistent with possible alcohol withdrawal. Ativan 1 mg IV was given in the ER, however, she is still anxious. Will give Ativan 2 mg IV now and put her on a withdrawal protocol. However, typically this underestimates the needs of someone withdrawing so will add additional Ativan as needed for anxiety or agitation. (4) Transaminitis: Mostly secondary to alcohol abuse AST on admission 338 that trending to 245 ALT on admission 219 that trending down to 160 Liver u/s showed no acute sonographic abnormality is identified in the right upper quadrant. No gallstones are seen. Monitor Liver Enzymes Avoid hepatotoxic agents (5) Hypertension: BP stable Continue losartan daily per home regimen. Electrolytes imbalance Related to vomiting and poor oral intake Mg 1.6 and K 3.1 Mg and K replaced Monitor Electrolytes (6) DVT prophylaxis: SCDs CODE STATUS Full code Disposition Continue monitor closely Subjective Pt was seen and examined Lying in bed with no distress with mother at bedside Pt said that she has not had any vomiting today She said that she feels hungry and would like to advance her diet She said that she was not able to swallow the potassium tab Denies any chest pain, palpitation, dizziness and SOB Physical Exam Physical Exam: General- No acute distress Head- atraumatic Eyes- PERRL, EOMI, ENT- oropharynx clear Neck- supple, no JVD Lungs- clear to auscultation Heart- regular rhythm; no murmur Abdomen- normal bowel sounds, soft, nontender Extremities- no calf tenderness Neuro- alert, oriented x 3; PERRL, EOMI; no facial palsy; no dysarthria Skin- warm & dry Results & Data Vital Signs (Past 12 Hours) Vital Signs Temp Pulse Resp BP Pulse Ox 05/23/19 07:07 36.9 C 66 16 139/93 93
[2019-05-23] MEDS ORDERED: POTASSIUM CHLORIDE PWD 20 MEQ PACK PO ONE (16:00)
[2019-05-23] MEDS: ACETAMINOPHEN 325 MG TAB PO PRN (17:36)
[2019-05-23] MEDS: THIAMINE HCL 100 MG in SYRINGE 9 ML IV SCH (17:38)
[2019-05-23] MEDS: FAMOTIDINE 20 MG in SYRINGE 3 ML IV SCH (22:06)
[2019-05-24] MEDS: ONDANSETRON INJ 2 MG/ML 2 ML VIAL IV PRN ×2 (03:05→09:09)
[2019-05-24] MEDS: LORazepam 0.5 MG/1 ML VIAL IV PRN ×2 (03:10→11:32)
[2019-05-24 08:58] LABS: Albumin Level 3.6 gm/dl (3.4-5.0); BUN Creatinine Ratio 3.3 (10-20); Creatinine Clr Calc Pharmacy 106.1 ml/min; Est GFR (African American) 142.4; Est GFR (Non-African American) 122.8; Potassium 3.9 mmol/L (3.5-5.1)
[2019-05-24 09:03] LABS: Bilirubin,Total 1.1 mg/dl (0.2-1); Globulin 3.7 gm/dl (2.5-4.0); Total Protein 7.3 gm/dl (6.4-8.2)
[2019-05-24] MEDS: LOSARTAN POTASSIUM 50 MG TAB PO SCH (09:08)
[2019-05-24] MEDS: FAMOTIDINE 20 MG in SYRINGE 3 ML IV SCH (09:08)
--- NOTE | 2019-05-24 10:40 | Hospitalist Progress Note ---
Date of Service May 24, 2019 Assessment & Plan (1) Nausea and vomiting: Possible related to alcohol abuse KUB showed No acute cardiopulmonary process. No evidence for bowel obstruction. Diet advanced and tolerated GI on board Recommended to advance diet as tolerated Resolved (2) Alcohol abuse: Alcohol level 30 Counseling on alcohol cessation Will monitor for alcohol withdrawal On ativan prn for alcohol withdrawal symptoms Will monitor for sign of DT Continue thiamine (3) Transaminitis: Mostly secondary to alcohol abuse AST on admission 338 that trending to 245--> 235 ALT on admission 219 that trending down to 160, then increased to 180 Liver u/s showed no acute sonographic abnormality is identified in the right upper quadrant. No gallstones are seen. Monitor Liver Enzymes Avoid hepatotoxic agents Case discussed with GI and recommended outpatient follow up Monitor CMP (4) Hypertension: BP stable Continue losartan daily per home regimen. Electrolytes imbalance Related to vomiting and poor oral intake Electrolytes stable Monitor Electrolytes (5) DVT prophylaxis: SCDs CODE STATUS Full code Disposition Discharge home tomorrow Subjective Pt was seen and examined Lying in bed with no distress Pt said that she feels much better She said that she tolerated Physical Exam Physical Exam: General- No acute distress Head- atraumatic Eyes- PERRL, EOMI, ENT- oropharynx clear Neck- supple, no JVD Lungs- clear to auscultation Heart- regular rhythm; no murmur Abdomen- normal bowel sounds, soft, nontender Extremities- no calf tenderness Neuro- alert, oriented x 3; PERRL, EOMI; no facial palsy; no dysarthria Skin- warm & dry Results & Data Vital Signs (Past 12 Hours) Vital Signs Temp Pulse Resp BP BP Pulse Ox 05/24/19 07:35 37.2 C 76 16 142/99 H 98 05/23/19 23:27 36.9 C 77 16 135/96 99
[2019-05-24] MEDS ORDERED: LORazepam 0.5 MG/1 ML VIAL IV ONE (17:15)
[2019-05-24] MEDS: THIAMINE HCL 100 MG TAB PO SCH (18:44)
[2019-05-24] MEDS: THIAMINE HCL 100 MG in SYRINGE 9 ML IV SCH (18:54)
[2019-05-24] MEDS ORDERED: LORazepam 0.5 MG TAB PO PRN (18:56)
[2019-05-24] MEDS: ACETAMINOPHEN 325 MG TAB PO PRN (21:13)
[2019-05-24] MEDS: FAMOTIDINE 20 MG TAB PO SCH (21:13)
[2019-05-25] MEDS: LOSARTAN POTASSIUM 50 MG TAB PO SCH (07:36)
[2019-05-25] MEDS: FAMOTIDINE 20 MG TAB PO SCH (07:36)
[2019-05-25] MEDS: THIAMINE HCL 100 MG TAB PO SCH (07:37)
[2019-05-25 07:50] LABS: Albumin Level 3.6 gm/dl (3.4-5.0); BUN Creatinine Ratio 8.8 (10-20); Calcium 9.3 mg/dl (8.5-10.1); Creatinine Clr Calc Pharmacy 106.1 ml/min; Est GFR (African American) 142.4; Est GFR (Non-African American) 122.8; Potassium 3.9 mmol/L (3.5-5.1)
[2019-05-25 07:52] LABS: Globulin 3.7 gm/dl (2.5-4.0); Total Protein 7.3 gm/dl (6.4-8.2)
--- NOTE | 2019-05-25 09:42 | Hospitalist Progress Note ---
Date of Service May 25, 2019 Assessment & Plan (1) Nausea and vomiting: Possible related to alcohol abuse KUB showed No acute cardiopulmonary process. No evidence for bowel obstruction. Diet advanced and tolerated GI on board recommended outpatient GI work up Tolerated regular diet Resolved (2) Alcohol abuse: Alcohol level 30 Counseling on alcohol cessation Will monitor for alcohol withdrawal On ativan prn for alcohol withdrawal symptoms No sign of DT Continue thiamine (3) Transaminitis: Mostly secondary to alcohol abuse AST on admission 338 that trending to 245--> 235--> 149 ALT on admission 219 that trending down to 160, then increased to 180, then decreased to 150 Liver u/s showed no acute sonographic abnormality is identified in the right upper quadrant. No gallstones are seen. Monitor Liver Enzymes Avoid hepatotoxic agents Case discussed with GI and recommended outpatient GI follow up Check CMP in 1 week (4) Hypertension: BP stable Continue losartan daily per home regimen. Electrolytes imbalance Related to vomiting and poor oral intake Electrolytes stable Monitor Electrolytes (5) DVT prophylaxis: SCDs CODE STATUS Full code Disposition Discharge home today Follow up with your primary care provider in [place] Subjective Pt was seen and examined Sitting in bed with no distress Pt already took her shower and worn her regular clothes She said that she feels fine She tolerated her diet Denies any hallucination, palpitation, dizziness and SOB Physical Exam Physical Exam: General- No acute distress Head- atraumatic Eyes- PERRL, EOMI, ENT- oropharynx clear Neck- supple, no JVD Lungs- clear to auscultation Heart- regular rhythm; no murmur Abdomen- normal bowel sounds, soft, nontender Extremities- no calf tenderness Neuro- alert, oriented x 3; PERRL, EOMI; no facial palsy; no dysarthria Skin- warm & dry Results & Data Vital Signs (Past 12 Hours) Vital Signs Temp Pulse Resp BP Pulse Ox 05/25/19 07:01 36.7 C 80 16 118/83 100 05/24/19 23:00 36.8 C 63 18 130/94 94
--- NOTE | 2019-06-03 07:54 | Discharge Summary ---
Date of Service May 25, 2019 Admission HPI Per Admitting Provider 29-year-old female who is a heavy alcohol abuser with a recent episode of acute pancreatitis 1 month ago for which she was hospitalized presents with nausea and intractable vomiting for the past 2 days. She appears to have an issue with swallowing food and initiating the swallow. She reports poor appetite for at least 2 months. She reports weight loss of 8 pounds in the last month but was also hospitalized for acute pancreatitis. She reports when she was discharged from prior hospitalization she was eating well but only for a brief time. She denies any changes in her stools. She denies any hematochezia or hematemesis. She denies any odynophagia. She denies any globus sensation. She reports that when the food hits her stomach, she can get too excited and vomited up. She reports some heartburn from the recent ranitidine drink she had in the ER. She otherwise denies any fevers, chills, chest pain, shortness of breath, abdominal pain, back pain. She denies using any other street drugs including no marijuana. She is actually considered starting medical marijuana because of her persistent nausea. She has had issues with drinking and quit up until last , and has been drinking consistently for the last 6 months. Her last drink was yesterday and her alcohol level is 30 today. On exam she is anxious and tachycardic in the low 100s. She reports feeling anxious. She does have a history of anxiety and depression and is used sertraline in the past with negative effects. She is currently taking clonazepam 0.5mg p.o. every morning. She is seeing a psychologist. She is not and has an IUD in place it was not menstruating at this time. Review of systems is otherwise negative. Admission Exam Per Admitting Provider CONSTITUTIONAL: WNWD, vitals as above, generally well-appearing but anxious EYES: EOMI bilaterally, PERRL, normal conjunctivae, no scleral icterus ENT: MMM RESPIRATORY: clear to auscultation bilaterally, no crackles, rales or wheezes, normal respiratory effort CARDIOVASCULAR: tachy rate and regular rhythm, S1 and 2 heard without murmurs, gallops or rubs, no JVD, no peripheral edema GASTROINTESTINAL: normal bowel sounds, soft, nontender, nondistended MUSCULOSKELETAL: strength 5/5 throughout, head is normocephalic and atraumatic SKIN: warm and dry NEUROLOGIC: CN 2-12 grossly intact, no sensory deficit, normal cognition, normal speech, no tremor, no gross focal deficits. PSYCHIATRIC: alert cooperative and oriented to person, place and time. Principal Diagnosis Nausea and vomiting Transaminitis Alcohol abuse Electrolytes imbalance Discharge Exam General- No acute distress Head- atraumatic Eyes- PERRL, EOMI, ENT- oropharynx clear Neck- supple, no JVD Lungs- clear to auscultation Heart- regular rhythm; no murmur Abdomen- normal bowel sounds, soft, nontender Extremities- no calf tenderness Neuro- alert, oriented x 3; PERRL, EOMI; no facial palsy; no dysarthria Skin- warm & dry Discharge Data Allergies Allergy/AdvReac Type Severity Reaction Status Date / Time Penicillins AdvReac Rash Unverified 05/22/19 12:32 Consultations 05/22/19 15:12 ED Decision to Admit Stat 05/22/19 17:15 Consult Case Management - Discharge Planning Routine 05/22/19 17:23 Consult Gastroenterology Routine Ordered Studies 05/22/19 17:15 US liver Routine ULTRASOUND RIGHT UPPER QUADRANT ABDOMEN CLINICAL HISTORY: Elevated hepatic transaminases. Nausea and vomiting. COMPARISON STUDY: Abdominal radiographs dated 05/22/2019. TECHNIQUE: Real-time, grayscale, and color flow sonography of the right upper quadrant of the abdomen was performed. Images are reviewed in the transverse and longitudinal planes. FINDINGS: Liver: The liver is enlarged, measuring over 18 cm in length. The liver demonstrates heterogeneously increased echotexture consistent with hepatic steatosis. Note that this degrades acoustic penetration of the liver. There is no intrahepatic biliary ductal dilatation. The main portal vein is patent. Gallbladder: The gallbladder is normal in appearance. No gallstones are identified. There is no gallbladder wall thickening or pericholecystic fluid. A sonographic Crow's sign is reportedly absent. The common bile duct measures up to 0.5 cm in diameter. Pancreas: Visualized portions of the pancreatic head and body are normal in appearance. The splenic vein is patent. Right kidney: Survey images of the right kidney demonstrate normal size and echotexture. There is no hydronephrosis. Ascites: None. IMPRESSION: 1. No acute sonographic abnormality is identified in the right upper quadrant. No gallstones are seen. 2. Hepatomegaly and hepatic steatosis. Electronically signed by: Chaitanya Orozco M.D. 05/23/2019 7:13 AM Dictated: 05/23/19710 Transcribed: 05/23/19710 CHEST AND ABDOMEN 2 VIEWS HISTORY: intractable nausea/vomiting COMPARISON: None. FINDINGS: The lungs are clear. The cardiomediastinal silhouette is within normal limits. There is no pneumoperitoneum or pneumatosis. The bowel gas pattern is unremarkable. No evidence for bowel obstruction. No pathologic calcifications. An intrauterine device is seen within the mid pelvis. IMPRESSION: No acute cardiopulmonary process. No evidence for bowel obstruction. Electronically signed by: Kris Robles M.D. 05/22/2019 5:42 PM Dictated: 05/22/191740 Transcribed: 05/22/191740 Hospital Course (1) Nausea and vomiting: Possible related to alcohol abuse KUB showed No acute cardiopulmonary process. No evidence for bowel obstruction. Diet advanced and tolerated GI on board recommended outpatient GI work up Tolerated regular diet Resolved (2) Alcohol abuse: Alcohol level 30 Counseling on alcohol cessation Will monitor for alcohol withdrawal On ativan prn for alcohol withdrawal symptoms No sign of DT Continue thiamine (3) Transaminitis: Mostly secondary to alcohol abuse AST on admission 338 that trending to 245--> 235--> 149 ALT on admission 219 that trending down to 160, then increased to 180, then decreased to 150 Liver u/s showed no acute sonographic abnormality is identified in the right upper quadrant. No gallstones are seen. Monitor Liver Enzymes Avoid hepatotoxic agents Case discussed with GI and recommended outpatient GI follow up Check CMP in 1 week (4) Hypertension: BP stable Continue losartan daily per home regimen. Electrolytes imbalance Related to vomiting and poor oral intake Electrolytes stable Monitor Electrolytes (5) DVT prophylaxis: SCDs CODE STATUS Full code Disposition Discharge home today Follow up with your primary care provider in [place] Total Time Total Time Spent Total Time Spent (In Minutes): 35 minutes Total Time Includes: Examination of the Patient, Discharge Planning, Medication Reconciliation, Communication With Other Providers and Other Discharge Plan Discharge Items Patient Disposition: Home - Self-Care Reason For Visit: NAUSEA AND VOMITING Discharge Diagnosis: Nausea and vomiting Transaminitis Alcohol abuse Electrolytes imbalance Discharge Goals: Decrease discomfort, Improve disease control, Improve function and Increase independence Activity: Resume your previous activity Activity Comment: As tolerated Non-emergency contact: Primary Care Provider and Field Services Director Call non-emergency contact if: you have any medication questions Follow-up/Referrals: ADRIANA COX [Other] Diet: Low Sodium (2gm) Addtl Provider Instructions: Follow up with your primary care provider in 1 week You will need gastro work up if your symptoms do not improve or worsening Check LFT in 1 week to monitor lever enzymes Counseling on alcohol cessation Rest. Follow-up with your doctor and counselor for further evaluation for your anxiety and alcohol use and abdominal pain Minimize your alcohol use. May use Maalox. Also may use [id number] Zantac or Pepcid Return if: Worsening symptoms, not tolerating fluids, fever or chills, any new problems For alcohol withdrawal prevention use Ativan (Lorazepam) taper as directed 0.5 mg lorazepam every 8 hours x1 day then 0.5 mg lorazepam every 12 hours x1 day then 0.5 mg lorazepam once a day for 1 day Ativan/lorazepam may make you drowsy and do not take before drinking, driving, working. This replaces the Ativan/Lorazepam that you normally take and do not take both If you start drinking do not take the Ativan/lorazepam, stop taking it Prescriptions: New thiamine HCl (vitamin B1) [Vitamin B-1] 100 mg Tablet 100 mg PO DAILY 30 Days Qty: 30 RF: 0 folic acid 1 mg tablet 1 mg PO DAILY Qty: 30 RF: 0 Continued losartan 50 mg Tablet 50 mg PO DAILY RF: 0 Mirena 20 mcg/24 hours (5 yrs) 52 mg Intrauterine Device 1 device INTRAUTERINE DIRECTED RF: 0 lorazepam [Ativan] 0.5 mg Tablet 0.5 mg PO DIRECTED PRN (Reason: Anxiety) RF: 0 Stand-Alone Forms: [facility], Important Visit Information Discharge Orders: Discharge Order (Routine); Ordered 05/25/19 Ordered By: Jefry Dejesus Admission Data Admit Date/Time: 05/22/19 15:59 Attending Provider: Yoli Ibarra Admit Provider: Kamila Deluna Primary Care Provider: Adriana Cox Other Providers: Zuleika Louis Service: Medical Other Interventions: Discharge Summary Assessment (RN) Last Done: 05/25/19 10:23 DC Date/Time DO NOT enter until pt leaves facility: 05/25/19 10:47
== END 2019-05-25 10:47 | disposition home or self-care (01) | DRG 897 ==
LOC: ED 11:32 → SUATTDRO 15:59 → 2N 15:59